=== PATIENT | male | born 1960 | race Caucasian/White ===

== ENCOUNTER 2019-06-22 07:18 | Inpatient (IN) | payer OTHER ==
[~2019-06-22] VITALS: Ht 177.8 cm; Wt 100.7 kg
[2019-06-22] VITALS (30 sets, daily range): BP systolic 86–124; BP diastolic 45–90
[2019-06-22 07:58] LABS: HEMOGLOBIN 16.5 gm/dL (14.0-18.0); MCH 32.8 pg (26.0-34.0); MCHC 33.7 g/dL (28.0-37.0); MCV 97.2 fL (80.0-100.0); RBC 5.04 mil/uL (4.50-6.00); RDW 13.5 % (10.5-14.5); WBC 5.4 thou/uL (4.0-11.0)
[2019-06-22] MEDS ORDERED: XANAX 0.25 MG0.25 MG PO (08:00)
[2019-06-22] MEDS ORDERED: AMBIEN5 MG PO (08:00)
[2019-06-22] MEDS ORDERED: ASA81BEC PO (08:00)
[2019-06-22] MEDS ORDERED: ZETIA10 MG PO (08:00)
[2019-06-22] MEDS ORDERED: BYSTOLIC10 MG PO (08:01)
[2019-06-22] MEDS ORDERED: CRESTOR40 MG PO (08:01)
[2019-06-22 08:08] LABS: CALCIUM 8.5 mg/dL (8.5-10.1); CREATININE 1.2 mg/dL (0.7-1.3)
--- NOTE | 2019-06-22 08:49 | EKG ---
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: MARY CARMENDEVAUGHN RAFIMunira : 1960 Requested By: Jhon Hope Order Number: [id number] MD: Perry Child Measurements Intervals [place] Rate: 70 P: 37 DC: 192 QRS: -43 QRSD: 100 T: 45 QT: 382 QTc: 413 Interpretive Statements Sinus rhythm Left anterior fascicular block Left ventricular hypertrophy Anterior infarct, old No previous ECG available for comparison Electronically Signed On 06-22-2019 8:48:52 METAL TANK ERECTOR by Perry Child [email or web address] <ELECTRONICALLY SIGNED> By: Perry Child MD, [facility] 06/22/19 0848 0759 0759 Perry Child MD, FACC /EPI
--- NOTE | 2019-06-22 10:00 | NUR ---
DR. SAENZ HERE TO SEE PATIENT TO DISCUSS BYPASS SURGERY.
[2019-06-22 10:51] LABS: HEMATOCRIT 48.4 % (42.0-52.0); MCH 32.2 pg (26.0-34.0); MCHC 33.1 g/dL (28.0-37.0); MCV 97.3 fL (80.0-100.0); PLATELET COUNT 190 thou/uL (150-400); RBC 4.97 mil/uL (4.50-6.00); RDW 13.8 % (10.5-14.5); WBC 5.2 thou/uL (4.0-11.0)
[2019-06-22 10:54] LABS: CALCIUM 8.7 mg/dL (8.5-10.1); CREATININE 1.1 mg/dL (0.7-1.3); POTASSIUM 4.3 mmol/L (3.5-5.1)
[2019-06-22 10:59] LABS: ALBUMIN 3.2 g/dL (3.4-5.0); TOTAL BILIRUBIN 0.8 mg/dL (<0.1-1.0); TOTAL PROTEIN 6.5 g/dL (6.4-8.2)
[2019-06-22 11:00] LABS: APTT 25.1 Seconds (24.5-32.8); INR 1.1; PROTIME 11.3 Seconds (9.3-11.4)
[2019-06-22 11:07] LABS: ABSOLUTE NEUTROPHILS 3.2 thou/uL (1.4-8.2); PLATELET ESTIMATE NORMAL
[2019-06-22 16:23] LABS: HEMATOCRIT 32.5 % (42.0-52.0); MCH 32.8 pg (26.0-34.0); MCHC 33.7 g/dL (28.0-37.0); MCV 97.3 fL (80.0-100.0); RBC 3.34 mil/uL (4.50-6.00); RDW 13.6 % (10.5-14.5)
[2019-06-22 16:24] LABS: HEMOGLOBIN 10.9 gm/dL (14.0-18.0)
[2019-06-22 16:41] LABS: APTT 31.7 Seconds (24.5-32.8); INR 1.7; PROTIME 17.4 Seconds (9.3-11.4)
[2019-06-22 16:46] LABS: FIBRINOGEN 110.1 mg/dL (210-360)
[2019-06-22 17:08] LABS: POC BE 4 mmol/L (-2.0 to +3.0); POC CA IONIZED 4.4 mg/dL (4.5-5.3); POC GLUCOSE 126 mg/dL (70-99); POC HEMOGLOBIN 14.6 g/dL (14.0-18.0); POC POTASSIUM 4.4 mmol/L (3.5-5.1); POC SODIUM 136 mmol/L (136-145); POC pCO2 38.7 mmHg (35.0-45.0); POC pH 7.468 (7.360-7.450)
[2019-06-22 17:08] LABS: POC BE 0 mmol/L (-2.0 to +3.0); POC CA IONIZED 3.9 mg/dL (4.5-5.3); POC GLUCOSE 122 mg/dL (70-99); POC HCO3 24.4 mmol/L (22.0-26.0); POC HEMOGLOBIN 13.3 g/dL (14.0-18.0); POC POTASSIUM 4.1 mmol/L (3.5-5.1); POC SODIUM 138 mmol/L (136-145); POC pCO2 39.2 mmHg (35.0-45.0); POC pH 7.402 (7.360-7.450)
[2019-06-22 17:09] LABS: POC BE 0 mmol/L (-2.0 to +3.0); POC GLUCOSE 165 mg/dL (70-99); POC HCO3 25.2 mmol/L (22.0-26.0); POC HEMOGLOBIN 9.9 g/dL (14.0-18.0); POC POTASSIUM 5.1 mmol/L (3.5-5.1); POC SODIUM 133 mmol/L (136-145); POC pCO2 42.9 mmHg (35.0-45.0); POC pH 7.377 (7.360-7.450)
[2019-06-22 17:09] LABS: POC BE 0 mmol/L (-2.0 to +3.0); POC CA IONIZED 4.4 mg/dL (4.5-5.3); POC GLUCOSE 141 mg/dL (70-99); POC HCO3 24.5 mmol/L (22.0-26.0); POC HEMOGLOBIN 10.2 g/dL (14.0-18.0); POC POTASSIUM 4.2 mmol/L (3.5-5.1); POC SODIUM 137 mmol/L (136-145); POC pCO2 37.9 mmHg (35.0-45.0); POC pH 7.418 (7.360-7.450)
[2019-06-22 17:09] LABS: POC BE 1 mmol/L (-2.0 to +3.0); POC CA IONIZED 3.9 mg/dL (4.5-5.3); POC GLUCOSE 123 mg/dL (70-99); POC HCO3 25.3 mmol/L (22.0-26.0); POC HEMOGLOBIN 11.2 g/dL (14.0-18.0); POC POTASSIUM 4.5 mmol/L (3.5-5.1); POC SODIUM 137 mmol/L (136-145); POC pCO2 39.4 mmHg (35.0-45.0); POC pH 7.416 (7.360-7.450)
[2019-06-22 17:09] LABS: POC BE 1 mmol/L (-2.0 to +3.0); POC GLUCOSE 147 mg/dL (70-99); POC HCO3 25.4 mmol/L (22.0-26.0); POC HEMOGLOBIN 10.5 g/dL (14.0-18.0); POC POTASSIUM 4.9 mmol/L (3.5-5.1); POC SODIUM 134 mmol/L (136-145); POC pCO2 39.5 mmHg (35.0-45.0); POC pH 7.416 (7.360-7.450)
[2019-06-22 17:36] LABS: BE(vivo) -4.7 mmol/L (-2 to +3); HCO3 20.3 mmol/L (22.0-26.0); PCO2 37.2 mmHg (35.0-45.0); PO2 85.8 mmHg (80.0-100.0); pH 7.354 (7.360-7.450); sO2 96.2 % (92.0-98.0)
[2019-06-22 18:04] LABS: HEMATOCRIT 39.9 % (42.0-52.0); MCHC 33.9 g/dL (28.0-37.0); MCV 97.4 fL (80.0-100.0); RBC 4.1 mil/uL (4.50-6.00); RDW 13.4 % (10.5-14.5); WBC 8.9 thou/uL (4.0-11.0)
[2019-06-22 18:11] LABS: HEMOGLOBIN 13.5 gm/dL (14.0-18.0)
[2019-06-22 18:16] LABS: CALCIUM 7.9 mg/dL (8.5-10.1); CREATININE 1.1 mg/dL (0.7-1.3); MAGNESIUM 2.2 mg/dL (1.8-2.4)
[2019-06-22 18:17] LABS: POTASSIUM 4.8 mmol/L (3.5-5.1)
[2019-06-22 18:28] LABS: APTT 30.1 Seconds (24.5-32.8); INR 1.3; PROTIME 13.8 Seconds (9.3-11.4)
--- NOTE | 2019-06-22 18:37 | NUR ---
PT ARRIVED FROM OR AT 1730, WITH SURGEON, NURSING, AND YAIR. PT WAKING, PROPOFOL GTT BACK ON. LEVO FOR BP. CHANGED FEMORAL TO RADIAL ABP. PT VERY ANXIOUS, PRECEDEX STARTED. 1 UNIT FFP GIVEN.
[2019-06-22 20:15] LABS: BE(vivo) -1.8 mmol/L (-2 to +3); HCO3 22.4 mmol/L (22.0-26.0); PCO2 36.9 mmHg (35.0-45.0); PO2 109.9 mmHg (80.0-100.0); pH 7.402 (7.360-7.450); sO2 98.1 % (92.0-98.0)
[2019-06-22 20:48] LABS: BE(vivo) -3.3 mmol/L (-2 to +3); HCO3 20.6 mmol/L (22.0-26.0); PCO2 33.8 mmHg (35.0-45.0); PO2 114.3 mmHg (80.0-100.0); pH 7.403 (7.360-7.450); sO2 98.2 % (92.0-98.0)
[2019-06-22 23:34] LABS: HEMOGLOBIN 12.9 gm/dL (14.0-18.0); MCH 33.2 pg (26.0-34.0); MCHC 34.1 g/dL (28.0-37.0); MCV 97.6 fL (80.0-100.0); RBC 3.89 mil/uL (4.50-6.00); RDW 13.8 % (10.5-14.5); WBC 7.9 thou/uL (4.0-11.0)
[2019-06-22 23:37] LABS: CALCIUM 7.8 mg/dL (8.5-10.1); CREATININE 1.2 mg/dL (0.7-1.3); POTASSIUM 4.2 mmol/L (3.5-5.1)
[2019-06-23] VITALS (43 sets, daily range): BP systolic 90–125; BP diastolic 44–75
[2019-06-23 00:07] LABS: GLYCOHEMOGLOBIN (HGB A1C) 5.3 % (4.8-5.6)
--- NOTE | 2019-06-23 00:47 | NUR ---
RECIEVED REPORT FROM ANU AYALA. PT AO DURING ARRIVAL, ABLE TO FOLLOW COMMANDS WHILE INTUBATED ON VENT. ABG COLLECTED, PT CPAP AND EXTUBATED AT 2052 PM. POST EXTUBATION PT PLACED ON FACESHIELD AT 40%. SATS ABOVE 90%. PT MEDICATED FOR PAIN RELIEF. AT APPROXIMATELY 2130, PVCS, COUPLETS AND TRIGEMINY NOTED ON MONITOR. AMIO GTT START AT 2313. AT APPROXIMATELY 2340 DR[address] SAENZ WAS CALLED TO UPDATE ABOUT PT'S STATUS IN RHYTHM, THE NOTED INCREASE IN PVCS FREQUENCY. DR. SAENZ ORDERED SWAN CATHETER TO BE DC. SWAN DC AT 2350. NO NOTED FREQUENT PVCS, OR CHANGE IN RHYTHM AFTER SWAN CATHETER DC. HOURLY URINE OUTPUT AND CHEST TUBES DOCUMENTED. ON LEVOPHED FOR BP SUPPORT. ON PRECEDEX AT 0.2 MCGS/KG/HR. PT IS VERY ANXIOUS WITH POST OP. PT EDUCATED ABOUT PAIN CONTROL, AND PLAN OF CARE. TALKED TO PT'S GIRLFRIEND SCOTT DURING THE NIGHT. SHE INFORMED ME PT'S DRINKS ALCOHOL FREQUENTLY. PATIENT INFORMED ME HE DRINKS APPROXIMATELY 2-3 GLASSES OF VODKA PER NIGHT. THIS HAS BEEN ONGOING FOR THE PAST 8 MONTHS D/T INCREASE IN STRESS AND ANXIETY. HIS LAST DRINK WAS ON THE 06/21 PER PATIENT.
[2019-06-23 05:26] LABS: HEMATOCRIT 36.6 % (42.0-52.0); HEMOGLOBIN 12.4 gm/dL (14.0-18.0); MCH 33.1 pg (26.0-34.0); MCHC 33.9 g/dL (28.0-37.0); MCV 97.6 fL (80.0-100.0); RBC 3.75 mil/uL (4.50-6.00); RDW 13.3 % (10.5-14.5); WBC 7.7 thou/uL (4.0-11.0)
[2019-06-23 05:53] LABS: CALCIUM 8.1 mg/dL (8.5-10.1); CREATININE 1.2 mg/dL (0.7-1.3); MAGNESIUM 1.9 mg/dL (1.8-2.4)
[2019-06-23 05:56] LABS: APTT 30.1 Seconds (24.5-32.8); PROTIME 10.9 Seconds (9.3-11.4)
[2019-06-23 07:15] LABS: URINE BILIRUBIN NEGATIVE (Negative); URINE BLOOD 3+ (Negative); URINE COLOR YELLOW; URINE GLUCOSE-RANDOM* NEGATIVE (Negative); URINE KETONES NEGATIVE (Negative); URINE LEUKOCYTES-REFLEX NEGATIVE (Negative); URINE NITRITE-REFLEX NEGATIVE (Negative); URINE PROTEIN (DIPSTICK) 1+ (Negative); URINE SPECIFIC GRAVITY >= 1.030 (1.005-1.035); URINE UROBILINOGEN 0.2 E.U./dl (0.2-1.0)
[2019-06-23 07:22] LABS: URINE CLARITY HAZY
--- NOTE | 2019-06-23 07:38 | EKG ---
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: Randy BURROWS : 1960 Requested By: Negro Maher Order Number: [id number] MD: Perry Child Measurements Intervals [place] Rate: 83 P: 38 IN: 199 QRS: -36 QRSD: 94 T: 46 QT: 363 QTc: 427 Interpretive Statements Sinus rhythm Left ventricular hypertrophy Inferior infarct, old Anterior infarct, old Compared to ECG 06/22/2019 07:59:51 No significant change was found Electronically Signed On 06-23-2019 7:38:03 DINING CAR HOP by Perry Child [email or web address] <ELECTRONICALLY SIGNED> By: Perry Child MD, FAC 06/23/19 0738 1857 56 Perry Child MD, [facility] /EPI
[2019-06-23 08:07] LABS: CASTS None Seen /LPF (None Seen); CRYSTALS None Seen /LPF (None Seen); SQUAMOUS 0-3 Few /LPF (0-3); URINE RBC 3-10 Few /HPF (0-2); URINE WBC-REFLEX 0-5 Rare /HPF (0-5)
[2019-06-23 08:08] LABS: BACTERIA-REFLEX 1-9 Few /HPF (None Seen)
--- NOTE | 2019-06-23 08:25 | NUR ---
RD consult received for diet education. S/P CABG x 3 on 06/22. Still in ICU. Will address nutrition education needs once transferred out and more closer to discharge.
--- NOTE | 2019-06-23 10:16 | NUR ---
Case opened to follow for dc planning. Pt is currently in ICU s/p CABGx3 yesterday. Cm role introduced to the pt at bedside. Pt is a&ox4 and notes his girl friend Linda is involved and supportive. He has good support from his sign other, two dtrs, and friends. The pt works fulltime and was active prior to admission. He lives alone in a second floor apt with 12 steps to enter. He and Linda are discussing him staying with her at ma. Pt is on CIWA for ethol due to daily vodka intake. Linda is working on getting his [place] paperwork from his employer. No dc planning needs anticipated at this time. Pt will likely dc to outpt f/u over the weekend pending his progress. Will remain available should dc needs arise.
--- NOTE | 2019-06-23 11:49 | NUR ---
PATIENT PROGRESSING INDICIATED BY LEFT FEMORAL A LINE PULLED THIS AM AND HEMOSTATIS ACHIEVED. LEFT PEDAL IS 1+ AND GROIN SITE IS SOFT, NO DRAINAGE OR HEMATOMA NOTED. LEVOPHED TAPPERED MEAN ARTERIAL PRESSURE IS EQUAL TO OR GREATER THAN 65 MMHG. ROEL DAMPPENS WITH MOVEMENT. PATIENT STATES THAT HIS PAIN IS CONTROLLED WITH PAIN MANAGEMENT REGIME. TAKING PO LIQUIDS WITHOUT C/O NAUSEA OR EMESIS NOTED. CIWA SCORE IS 4-5, HEADACHE CONTROLLED. PATIENT AND FAMILY UPDATED TO THE POC AND REASSURANCE GIVEN. VERBALIZED UNDERSTANDING.
--- NOTE | 2019-06-23 13:05 | CATHLAB ---
[facility] [address] [place] [address] INVASIVE PROCEDURE REPORT Name: JOSE LUIS LAGOS Room #: 240-P [facility] IN ..#: [id number] Admission: 06/22/19 Attend Phys: Jhon Hope, Discharge: Date of : 56 Report #: [id number] THIS REPORT FOR: //name// APPROVED REPORT Study performed: 06/22/2019 07:57:27 Patient Details Patient Status: Out-Patient Room #: The patient is a 58 year-old male Event Personnel Jhon Hope Prison Keeper, Marisol Mccain RN, Lisa Harris RN RN, Geovany Rodríguez, Nadia Mcmanus RTR Scrub Procedures Performed Left Heart Cath w/or w/o Coronaries [id number] [facility] Aortogram Abdominal Peripheral Angio [id number] Indication Chest pain Procedure Narrative The Right Groin^ was infiltrated with 1% Lidocaine subcutaneous anesthesia. A PINNACLE 6FR Sheath #[id number] sheath was inserted into the RFA^. Coronary angiography was performed using coronary diagnostic catheters. The right coronary system was accessed and visualized with a JR4 catheter. The left coronary system was accessed and visualized with a JL4 catheter. The left ventricle was accessed and visualized with a PIGTAIL catheter. Left ventriculogram was performed in 30 degree projection. An aortogram of the abdominal aorta was performed. Closure device was deployed with a 6 Fr MYNXGRIP 6/7F #[id number]. The patient tolerated the procedure well and there were no complications associated with the procedure. Intraoperative Conscious Sedation Sedation start time: 8.36 Case end Time: 9.17 Fentanyl 75 mcg Versed 1 mg Fluoro Time: 2.36 minutes Dose: DAP 3966 cGycm2 [address] [facility] [address] [place] [address] INVASIVE PROCEDURE REPORT Name: JOSE LUIS LAGOS Room #: 240-P [facility] IN ..#: [id number] Admission: 06/22/19 Attend Phys: Jhon Hope, Discharge: Date of : 56 Report #: [id number] The aortic pressure is 128/72 mmHg with a mean of 96 mmHg. The left ventricular pressure is 123/12 mmHg with a mean of mmHg. The left ventricular end diastolic pressure is 24 mmHg. Conclusion #1 normal left ventricular size with mild global hypokinesis slightly worse anterior apex EF 45% range #2 abdominal aortogram shows an intact abdominal aorta renal arteries widely patent iliac system widely patent. No aneurysm. #3 left main with a high-grade ostial left main stenosis 90% range with significant catheter dampening #4 eccentric proximal LAD lesion mildly calcified 60-70% mild diffuse disease in the remainder of the LAD is extends around the apex #5 circumflex OM nondominant with mild irregularities 1 large marginal branch preserved #6 large dominant right coronary with mild irregularities no occlusive disease #7 ISSA is injected in anticipation of possible utilization widely patent excellent conduit Recommendations and plan: Patient to be evaluated by CV surgery for bypass. High-grade ostial left main. Cannot be discharged from hospital we'll attempt to revascularize by bypass today ordered in a.m. Patient is pain-free transfer to CCU Expect improvement in LV function with revascularization. Anterior apex appear to be stunned hibernating. <ELECTRONICALLY SIGNED> By: Jhon Hope MD, FACC 06/23/19 1304 1304 1304 Jhon Hope MD, FACC /INF
--- NOTE | 2019-06-23 20:22 | NUR ---
PATIENT PROGRESSING TOWARDS OUTCOME GOALS EVIDENT BY, LEVOPHED WEANED OFF, UP IN THE CHAIR AND TOLERATED WELL, PAIN MANAGED WITH PAIN MANAGEMENT REGIME. PACEMAKER WIRES CAPPED AND MEDIAL STINAL CHEST TUBED DC'D.
[2019-06-24] VITALS (29 sets, daily range): BP systolic 93–133; BP diastolic 39–80
[2019-06-24 05:02] LABS: HEMATOCRIT 35.1 % (42.0-52.0); HEMOGLOBIN 11.8 gm/dL (14.0-18.0); MCH 32.7 pg (26.0-34.0); MCHC 33.5 g/dL (28.0-37.0); MCV 97.5 fL (80.0-100.0); RBC 3.6 mil/uL (4.50-6.00); RDW 13.8 % (10.5-14.5); WBC 7.8 thou/uL (4.0-11.0)
[2019-06-24 05:19] LABS: CALCIUM 8.8 mg/dL (8.5-10.1); CREATININE 1.1 mg/dL (0.7-1.3); PHOSPHORUS 2.1 mg/dL (2.5-4.9); POTASSIUM 3.3 mmol/L (3.5-5.1)
--- NOTE | 2019-06-24 05:26 | NUR ---
PT AOX4. MEDICATED FOR PAIN RELIEF DURING THE NIGHT. ON 2L HF, NO SIGNS OF RESP DISTRESS AT REST. VSS. AFEBRILE. PT ACCIDENTALLY PULLED OUT TRANSDUCER CENTRAL LINE DURING THE NIGHT. OUTPUT NOTED ON PLEURAL CHEST TUBE. TONEY WILL BE DISCONTINUED THIS AM. PT PROGRESSING TOWARDS GOALS. WILL CONTINUE TO MONITOR
[2019-06-24 05:46] LABS: FOLIC ACID 8.9 ng/mL (8.6-58.9); TSH 2.202 uIU/mL (0.358-3.740)
--- NOTE | 2019-06-24 12:00 | NUR ---
PATIENT AMBULATED IN THE HALLWAY WITH PT AND THIS NURSE, UPON RETURN TO THE ROOM PLACED IN CHAIR FOR LUNCH. BECOMING IMPULSIVE AND POOR SHORT TERM MEMORY NOTED HE WILL NOT FOLLOW SIMPLE DIRECTIONS.
--- NOTE | 2019-06-24 19:52 | NUR ---
PATIENT BECOMING MORE IMPULSIVE AND WILL NOT FOLLOW DIRECTIONS, INSTRUCTED TO CALL NURSE TO HELP OUT OF BED, ATTEMPTING TO GET OOB AND KNOCKING OVER PLEURAL CHEST TUBE. ATIVAN GIVEN. MONITOR SHOWING ST. O2 WEANED DOWN TO 1L/NC. VISITING WITH FAMILY EARLIER, ENCOURAGED TO WATCH FOOTBALL GAME.
--- NOTE | 2019-06-24 21:00 | NUR ---
PT AGITATED AND TRYING TO GET OUT OF BED AT SHIFT CHANGE. PT PULLED HIS IV OUT. PT DISORIENTED TO SITUATION AND PLACE. PRECEDEX STARTED.
[2019-06-25] VITALS (25 sets, daily range): BP systolic 85–117; BP diastolic 43–66
[2019-06-25 04:14] LABS: CALCIUM 9.2 mg/dL (8.5-10.1); CREATININE 1.5 mg/dL (0.7-1.3); MAGNESIUM 2.1 mg/dL (1.8-2.4); PHOSPHORUS 2.4 mg/dL (2.5-4.9); POTASSIUM 4.2 mmol/L (3.5-5.1)
--- NOTE | 2019-06-25 07:43 | NUR ---
PT ON PRECEDEX GTT TITRATION. PT DROWSY AND ORIENTED TO PERSON, PLACE AND SITUATION THIS AM. REPORT GIVEN TO JAMIE DUNHAM. PT PROGRESSING TOWARDS GOALS. CHART CHECK.
--- NOTE | 2019-06-25 12:44 | EKG ---
[address] [place] [address] ELECTROCARDIOGRAM REPORT Name: JOSE LUIS LAGOS Room #: 240-P ADM IN M.R.#: [id number] Admission: 06/22/19 Attend Phys: Jhon Hope MD, Discharge: Date of : 56 Report #: [id number] THIS REPORT FOR: //name// [facility] Test Date: 2019-06-23 Test Time: 07:05:17 Pat Name: JOSE LUIS LAGOS Department: Room: 240 P Gender: M Rn Trauma: WALLY : 1960 Requested By: Negro Maher Order Number: [id number] MD: Perry Child Measurements Intervals [place] Rate: 85 P: 41 SD: 190 QRS: -22 QRSD: 96 T: 43 QT: 341 QTc: 406 Interpretive Statements Sinus rhythm Left ventricular hypertrophy ST elevation suggests acute pericarditis Compared to ECG 06/22/2019 07:59:51 ST (T wave) deviation now present Left anterior fascicular block no longer present Myocardial infarct finding no longer present Electronically Signed On 06-25-2019 12:43:56 AIRCRAFT INSPECTOR by Perry Child [email or web address] <ELECTRONICALLY SIGNED> By: Perry Child MD, FAC 06/25/19 1243 0705 0705 Perry Child MD, [facility] /EPI
--- NOTE | 2019-06-25 12:58 | EKG ---
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: Manisha SALGADO : 1960 Requested By: Genesis Montemayor Order Number: [id number] MD: Perry Child Measurements Intervals [place] Rate: 88 P: 21 ID: 181 QRS: -25 QRSD: 86 T: 59 QT: 339 QTc: 410 Interpretive Statements Sinus rhythm Left ventricular hypertrophy Poor R wave progression Minimal ST segment elevation consider postoperative pericarditis Compared to ECG 06/22/2019 18:57:45 No significant change was found Electronically Signed On 06-25-2019 12:57:49 LIFE INSURANCE AGENT by Perry Child [email or web address] <ELECTRONICALLY SIGNED> By: Perry Child MD, FACC 06/25/19 1257 0751 0751 Perry Child MD, FAC /EPI
--- NOTE | 2019-06-25 14:52 | NUR ---
PT ALERT AND ORIENTED X4. CALM AND COOPERATIVE TODAY. PRECEDEX WEANED OFF. RECIEVING ATIVAN PRN. DR SAENZ HERE AND CT AND PACER WIRES DISCONTINUED. CHEST XRAY DONE FOLLOWING. PT AMBULATING IN HALLWAY WITH PHYSICAL THERAPY X2 TODAY. UP TO CHAIR FOR MOST OF THE DAY TODAY. USING I.S. UP TO 1000ML. PROGRESSING TOWARDS GOALS PER PLAN OF CARE. WILL CONTINUE TO MONITOR PATIENT.
[2019-06-26] VITALS (10 sets, daily range): BP systolic 89–154; BP diastolic 58–76
--- NOTE | 2019-06-26 04:28 | NUR ---
NO OVERNIGHT EVENTS. PT. HAS HAD TROUBLE SLEEPIN THROUGHOUT NIGHT. NO PRECEDEX NEEDED THROUGHOUT THIS SHIFT. ASSESSMENT AND VITAL SIGNS CHARTED. CONTINUE TO FOLLOW POC. PT. HOPEFUL TO MOVE OUT OF ICU TODAY. WILL CONTINUE TO MONITOR.
[2019-06-26 05:45] LABS: HEMATOCRIT 29.7 % (42.0-52.0); HEMOGLOBIN 9.9 gm/dL (14.0-18.0); MCHC 33.5 g/dL (28.0-37.0); MCV 98.5 fL (80.0-100.0); RBC 3.01 mil/uL (4.50-6.00); RDW 13.7 % (10.5-14.5); WBC 6.9 thou/uL (4.0-11.0)
[2019-06-26 05:50] LABS: CREATININE 1.3 mg/dL (0.7-1.3); POTASSIUM 3.8 mmol/L (3.5-5.1)
--- NOTE | 2019-06-26 10:08 | EKG ---
[place] [address] [facility] 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: Manisha SALGADO : 1960 Requested By: Negro Maher Order Number: [id number] MD: Perry Child Measurements Intervals [place] Rate: 82 P: 3 [place]: 172 QRS: -16 QRSD: 94 T: 41 QT: 385 QTc: 450 Interpretive Statements Sinus rhythm Left ventricular hypertrophy Anterior Q waves, possibly due to LVH Compared to ECG 06/24/2019 07:51:47 ST (T wave) deviation no longer present Electronically Signed On 06-26-2019 10:08:29 PUBLIC ADDRESS TECHNICIAN by Perry Child [email or web address] <ELECTRONICALLY SIGNED> By: Perry Child MD, [facility] 06/26/19 1008 0745 0745 Perry Child MD, [facility] /EPI
[2019-06-26 10:50] LABS: MAGNESIUM 2.2 mg/dL (1.8-2.4); PHOSPHORUS 4.3 mg/dL (2.5-4.9)
--- NOTE | 2019-06-26 13:10 | NUR ---
ASSUMED CARE TRANSFER FROM ICU THIS MORNING. ALERT X4, PAIN FROM COUGHING MANAGED WITH MEDICATIONS. UP WITH ASSIST, USING PROTOCOL FOR POST CABAG HEART PILLOW. STERNAL DRESSING C/D/I, LEFT GROIN AND LEG GRAFT SITE INTACT. 0 SCORE ON CIWA OKAY TO DC PER DR BERMEO. VOICED CONCERN ABOUT RECOVER AND STARTING NEW JOB. FALL PRECAUTIONS IN PLACE. CALLS FOR ASSISTANCE.
[2019-06-27 03:34] VITALS: BP 155/73
--- NOTE | 2019-06-27 04:27 | NUR ---
ASSUMED PT CARE AT 1900. PT A/OX4, VITAL SIGN STABLE, ASSESSMENT CHARTED. OCCASIONALLY ANXIOUS. XANAX GIVEN. PAIN ADEQAUTELY MANAGED WITH PAIN MEDICATION. FALL PRECAUTIONS, STERNAL PRECAUTIONS MAINTAINED. PT RESTED WELL THROUGH THE NIGHT, PROGRESSING TOWARD PLAN OF CARE. WILL CONTINUE TO MONITOR. ROSEMARIE DRESSING WITH WOUND VAC IN PLACE.
[2019-06-27 04:58] LABS: HEMATOCRIT 29.9 % (42.0-52.0); HEMOGLOBIN 10.1 gm/dL (14.0-18.0); MCH 33.4 pg (26.0-34.0); MCHC 33.9 g/dL (28.0-37.0); MCV 98.5 fL (80.0-100.0); PLATELET COUNT 198 thou/uL (150-400); RBC 3.04 mil/uL (4.50-6.00); RDW 13.9 % (10.5-14.5); WBC 7.9 thou/uL (4.0-11.0)
[2019-06-27 05:06] LABS: ALBUMIN 2.7 g/dL (3.4-5.0); CALCIUM 9.3 mg/dL (8.5-10.1); CREATININE 1.3 mg/dL (0.7-1.3); MAGNESIUM 2.2 mg/dL (1.8-2.4); POTASSIUM 3.5 mmol/L (3.5-5.1); TOTAL BILIRUBIN 1.1 mg/dL (<0.1-1.0); TOTAL PROTEIN 6.9 g/dL (6.4-8.2)
[2019-06-27 06:27] LABS: ABSOLUTE NEUTROPHILS 5.4 thou/uL (1.4-8.2)
[2019-06-27 06:28] LABS: LARGE PLATELETS FEW
[2019-06-27 07:30] VITALS: BP 132/73
--- NOTE | 2019-06-27 08:40 | O ---
[facility] [place] [address] OPERATIVE REPORT Name: JOSE LUIS LAGOS Room #: 214-P ADM IN M.R.#: [id number] Admission: 06/22/19 Attend Phys: Jhon Hope MD, Discharge: Date of : 56 Report #: [id number] THIS REPORT FOR: //name// CC: Marino Rider DATE OF SERVICE: 06/22/2019 PREOPERATIVE DIAGNOSIS: Coronary artery disease. POSTOPERATIVE DIAGNOSIS: Coronary artery disease. OPERATION: Coronary artery bypass x 3 including left internal mammary artery to left anterior descending artery, saphenous vein to diagonal and marginal and endoscopic harvest left greater saphenous vein. SURGEON: Dino Rider MD DIRECTOR OF SLOT OPERATIONS: Jeanmarie Maher. ANESTHESIA: General. INDICATIONS: The patient is a 58 year old with coronary artery disease. The patient presents with angina at home. The patient had a positive stress test that led to cardiac catheterization, which showed a 90% left main coronary lesion. There is trivial right coronary stenosis. Left ventricular function mildly reduced with apical hypokinesis. FINDINGS AND TECHNIQUE: After general anesthesia was established, left greater saphenous vein was harvested using an endoscopic approach and prepared for use as a conduit. Exposure was obtained through median sternotomy. Left internal mammary artery was harvested from chest wall. Pericardial well was made. Cannulation sutures were placed. Heparin was given. Aorta was cannulated. Right atrium was cannulated. Cardioplegia needle was positioned in the aortic root. Retrograde cardioplegia catheter was placed in the coronary sinus. Cardiopulmonary bypass was established. Aorta was cross clamped. Antegrade then retrograde cardioplegia were given. Ice was poured into the pericardial well. The heart was stopped. During electromechanical arrest, the distal anastomoses were performed and end-to-side anastomosis was made between vein and the marginal artery. Cold cardioplegia was given. Same segment of vein was sewn in [id number]-nqty fashion to the diagonal artery. Cold cardioplegia was given. Left internal mammary artery was sewn in end-to-side fashion to left anterior descending artery. Patency of this vessel was checked with the temperature technique. [facility] [address] [address] OPERATIVE REPORT Name: JOSE LUIS LAGOS Room #: 214-P [facility] IN ..#: [id number] Admission: 06/22/19 Attend Phys: Jhon Hope MD, Discharge: Date of : 56 Report #: [id number] cardioplegia was given. One proximal anastomosis was performed. When this was complete, warm retrograde cardioplegia was given followed by warm continuous blood through the coronary sinus. When this infusion was complete, the crossclamp was removed, de-airing maneuvers were performed. The anastomoses were inspected and found to be satisfactory. As the patient warmed, nice cardiac activity resumed, chest tubes and pacing wires were placed, a marker was placed around the proximal anastomoses. When the patient was warm, he was weaned from cardiopulmonary bypass. Venous cannula was removed. Protamine was given. The aortic cannula was removed. Flows were measured in the bypass grafts. When hemostasis was satisfactory, chest was irrigated with antibiotic solution and closed in the usual fashion. The patient was taken to the Intensive Care Unit in good condition having tolerated the procedure well. All counts reported as correct. <ELECTRONICALLY SIGNED> By: Dino Rider MD 06/27/19 0840 0817 0824 Dino Rider MD /nt
[2019-06-27] MEDS ORDERED: FERREX 150 PLU1 EAC1 PO (09:27)
[2019-06-27 09:55] VITALS: BP 132/73
--- NOTE | 2019-06-27 10:29 | NUR ---
ASSUMED CARE AT SHIFT CHANGE ALERT AND ORIENTED X4. ANXIOUS BUT DENIES ANY OTHER DISCOMFORT. PATIENT SHOWERED, AND DRESSING CHANGED. DISCHARGE AND MEDICATION INSTRUCTIONS GIVEN TO PATIENT AND FAMILY, AND PATIENT DISCHARGE HOME.
--- NOTE | 2019-07-02 17:35 | HC ---
[facility] [place] [address] CONSULTATION Name: JOSE LUIS LAGOS Room #: 214-P [facility] IN M.R.#: [id number] Admission: 06/22/19 Attend Phys: Jhon Hope MD, Discharge: 06/27/19 Date of : 56 Report #: [id number] THIS REPORT FOR: //name// CC: Marino Rider DATE OF SERVICE: 06/22/2019 We are asked by Dr. Taylor to see the patient. 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 Per the patient, he is reported to has had progressive angina that led to a strongly positive stress test in the office and a 90% left main lesion was identified. Our help was requested in performing urgent surgery on the patient. The patient had been previously healthy until the weeks prior to the catheterization. The patient also had a prior elevated calcium score of 1700 in the lab director, 90% left main lesion was found with trivial right coronary stenosis. There is also some mild mid LAD and first marginal stenosis seen. ALLERGIES: None known. MEDICATIONS AT HOME: Xanax, Ambien, aspirin, Zetia, Bystolic and Crestor. PREVIOUS MEDICAL PROBLEMS: Hyperlipidemia and anxiety. FAMILY HISTORY: Significant for hyperlipidemia and coronary artery disease. SOCIAL HISTORY: The patient is a nonsmoker. He does use alcohol daily. REVIEW OF SYSTEMS: CONSTITUTIONAL: Denies fever, chills, weight loss. HEENT: Denies vision change. Denies headache. Denies hearing problems. Denies nasal discharge. RESPIRATORY: Denies shortness of breath. CARDIAC: Occasional exertional angina. GASTROINTESTINAL: Denies nausea, vomiting, diarrhea. Denies urgency, frequency, blood. MUSCULOSKELETAL: Denies bone or joint pain. SKIN: Denies rash or infection. NEUROLOGIC: Has issues with anxiety and also states to often be tired and needs to sleep. ENDOCRINE: Denies tremor or goiter. HEMATOLOGIC: Denies bruisability or bleeding. [facility] [address] [place] [address] CONSULTATION Name: YOLISJOSE LUIS Teresa Room #: 214-[facility] IN M.R.#: [id number] Admission: 06/22/19 Attend Phys: Jhon Hope MD, Discharge: 06/27/19 Date of : 56 Report #: [id number] PHYSICAL EXAMINATION: VITAL SIGNS: Pulse rate 70, blood pressure 114/62, respiratory rate 19, temperature 37.1. HEENT: Normocephalic. Pupils are round, equal, reactive. NECK: No mass, no bruit. CHEST: Clear. HEART: Rhythm regular. ABDOMEN: Soft, somewhat protuberant. EXTREMITIES: No clubbing, cyanosis or edema. No obvious asymmetry or deformity. VASCULAR: 2+ popliteal pulses. No obvious saphenous vein problems. SKIN: No rash or infection. NEUROLOGIC: The patient just had cardiac cath, but no obvious motor or sensory dysfunction. PSYCHIATRIC: Oriented, tearful, anxious, but answers questions appropriately. ASSESSMENT: The patient has important left main coronary artery disease in the setting of progressive symptoms. We have recommended urgent bypass surgery. Risks and details were discussed. Options and alternatives were reviewed. The patient understands all of this and wishes to proceed. Thank you for the consult. <ELECTRONICALLY SIGNED> By: Dino Rider MD 07/02/19 1735 0824 0855 Dino Rider MD /nt
== END 2019-06-27 10:41 | disposition home or self-care (01) | DRG 233 ==
LOC: CATH 07:18 → ICU 17:27 → 2N 06-26 10:40
PROVIDERS: Internal Medicine; Internal Medicine Cardiovascular Disease; Nurse Practitioner Family; Physician Assistant; ADMIT Surgery Vascular Surgery
PROC: 4A023N7 Measurement of Cardiac Sampling and Pressure, Left Heart, Percutaneous Approach (ICD-10-PCS; principal; 2019-06-22)
PROC: B2111ZZ Fluoroscopy of Multiple Coronary Arteries using Low Osmolar Contrast (ICD-10-PCS; principal; 2019-06-22)
PROC: 021109W Bypass Coronary Artery, Two Arteries from Aorta with Autologous Venous Tissue, Open Approach (ICD-10-PCS; principal; 2019-06-22)
PROC: 06BQ4ZZ Excision of Left Saphenous Vein, Percutaneous Endoscopic Approach (ICD-10-PCS; principal; 2019-06-22)
PROC: 30233K1 Transfusion of Nonautologous Frozen Plasma into Peripheral Vein, Percutaneous Approach (ICD-10-PCS; principal; 2019-06-22)
PROC: B2151ZZ Fluoroscopy of Left Heart using Low Osmolar Contrast (ICD-10-PCS; principal; 2019-06-22)
PROC: 02100Z9 Bypass Coronary Artery, One Artery from Left Internal Mammary, Open Approach (ICD-10-PCS; principal; 2019-06-22)
PROC: B4101ZZ Fluoroscopy of Abdominal Aorta using Low Osmolar Contrast (ICD-10-PCS; principal; 2019-06-22)
PROC: 5A1221Z Performance of Cardiac Output, Continuous (ICD-10-PCS; principal; 2019-06-22)
PROC: 03HY32Z Insertion of Monitoring Device into Upper Artery, Percutaneous Approach (ICD-10-PCS; 2019-06-23)
PROC: 05HY33Z Insertion of Infusion Device into Upper Vein, Percutaneous Approach (ICD-10-PCS; 2019-06-23)
DX: I25.10 Atherosclerotic heart disease of native coronary artery without angina pectoris (principal); E43 Unspecified severe protein-calorie malnutrition; D62 Acute posthemorrhagic anemia; M62.82 Rhabdomyolysis; F10.239 Alcohol dependence with withdrawal, unspecified; E78.5 Hyperlipidemia, unspecified; F41.9 Anxiety disorder, unspecified; D69.6 Thrombocytopenia, unspecified; E83.39 Other disorders of phosphorus metabolism; N18.3 Chronic kidney disease, stage 3 (moderate); I12.9 Hypertensive chronic kidney disease with stage 1 through stage 4 chronic kidney disease, or unspecified chronic kidney disease; E66.9 Obesity, unspecified; Z68.32 Body mass index [BMI] 32.0-32.9, adult; Z79.82 Long term (current) use of aspirin; Z79.4 Long term (current) use of insulin; Z79.891 Long term (current) use of opiate analgesic; Z79.899 Other long term (current) drug therapy; Z82.49 Family history of ischemic heart disease and other diseases of the circulatory system
CPT/HCPCS: 10078; 10081; 47000; 47001; 47002; 47297; 47382; 48888; 50249; 50409; 50456; 50498; 50668; 51301; 52131; 52259; 52314; 53327; 53358; 54118; 56455; 56524; 56525; 56526; 56527; 56528; 56531; 56534; 56668; 56760; 56898; 57093; 57116; 57167; 62110; 62950; 65003; 65020; 65040; 65047; 65090; 65135; 85076